=== PATIENT | female | born 1990 | race Caucasian/White ===

== ENCOUNTER 2017-03-12 12:06 | Emergency (ER) | payer MEDICAID, SELFPAY ==
[2017-03-12 13:59] LABS: BASO % 0.6 % (0.0-2.0); EOS # 0.1 K/uL (0.0-0.7); EOS % 0.8 % (0.0-4.0); HEMATOCRIT 35.3 % (34.0-47.0); LYMPH # 1.6 K/uL (1.0-4.3); LYMPH % 21.9 % (20.0-40.0); MEAN CELL VOLUME 84.7 fl (81.0-99.0); MEAN CORPUSCULAR HEMOGLOBIN 29.4 pg (27.0-31.0); MEAN CORPUSCULAR HGB CONC 34.7 g/dL (33.0-37.0); MEAN PLATELET VOLUME 10.2 fl (7.2-11.7); MONO # 0.5 K/uL (0.0-0.8); MONO % 6.2 % (0.0-10.0); NEUT # 5.3 K/uL (1.8-7.0); NEUT % 70.5 % (50.0-75.0); RED CELL DISTRIBUTION WIDTH 17.8 % (11.5-14.5); WHITE BLOOD COUNT 7.5 K/uL (4.8-10.8)
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
[2017-03-12 14:20] LABS: ALKALINE PHOSPHATASE 224 U/L (38-126); ALT/SGPT 33 U/L (9-52); AST/SGOT 34 U/L (14-36); BILIRUBIN,TOTAL 0.2 mg/dl (0.2-1.3); BLOOD UREA NITROGEN 7 mg/dl (7-17); CALCIUM 9.1 mg/dL (8.4-10.2); CARBON DIOXIDE 22 mmol/L (22-30); CHLORIDE 110 mmol/L (98-107); GFR AFRICAN-AMERICAN > 60; GLUCOSE,RANDOM 66 mg/dL (65-105); POTASSIUM 3.9 MMOL/L (3.6-5.0); SODIUM 141 mmol/l (132-148); TOTAL PROTEIN 6.7 G/DL (6.3-8.2)
[2017-03-13 12:30] VITALS: BP 103/36; PULSE 64; RESP 17; O2SAT 98
== END 2017-03-12 15:05 | disposition home or self-care (01) ==
LOC: H.EROB2 12:06 → H.EROB 12:06 → H.EROB2 15:05
DX: O26.93 Pregnancy related conditions, unspecified, third trimester (principal); R10.2 Pelvic and perineal pain; L29.9 Pruritus, unspecified; Z3A.37 37 weeks gestation of pregnancy

== ENCOUNTER 2017-03-27 05:44 | Inpatient (IN) | payer MEDICAID, SELFPAY ==
[2017-03-27 05:53] VITALS: BMI 32.8
[2017-03-27] MEDS ORDERED: ceFAZolin 2 GM in Sodium Chloride 0.9% 100 ML IVPB ONE (06:03)
[2017-03-27] MEDS ORDERED: Lactated Ringer's 1,000 ML IV SCH (06:15)
[2017-03-27] MEDS ORDERED: Oxytocin 30 UNITS in Sodium Chloride 0.9% 500 ML IV SCH (06:15)
[2017-03-27 06:56] LABS: BASO # 0.1 K/uL (0.0-0.2); BASO % 0.7 % (0.0-2.0); EOS # 0.1 K/uL (0.0-0.7); EOS % 1.2 % (0.0-4.0); HEMATOCRIT 37.8 % (34.0-47.0); LYMPH # 2.1 K/uL (1.0-4.3); LYMPH % 28.6 % (20.0-40.0); MEAN CELL VOLUME 86.3 fl (81.0-99.0); MEAN CORPUSCULAR HEMOGLOBIN 28.9 pg (27.0-31.0); MEAN CORPUSCULAR HGB CONC 33.5 g/dL (33.0-37.0); MEAN PLATELET VOLUME 10.4 fl (7.2-11.7); MONO # 0.5 K/uL (0.0-0.8); MONO % 6.7 % (0.0-10.0); NEUT # 4.6 K/uL (1.8-7.0); NEUT % 62.8 % (50.0-75.0); NRBC % 0.1 % (0.0-0.0); RED CELL DISTRIBUTION WIDTH 17.5 % (11.5-14.5); WHITE BLOOD COUNT 7.3 K/uL (4.8-10.8)
[2017-03-27] MEDS: Lactated Ringer's 1,000 ML IV SCH ×2 (06:56→07:18)
--- NOTE | 2017-03-27 07:05 | OBHP ---
Datetime: 03/27/2017 06:44 IP Adm Impression: Term, intrauterine IP Admit Plan: Admit to unit; Initiate Section protocol Admit Comment, IP Provider: CC: HPI: 26 YO @39wks IUP presents to L_D for scheduled repeat . Pt has hx of 2x previou s c-sections. Denies LOF, VB, ctx and endorses FM. Clinic: [facility] OBhx: 2x c section 2009 (failure to progress) and 2013 GYnHx: pap ASCUS, no STDs PMH: denies SurgHx: x 2 SH: lives with partner, denies smoking, etoh, illicit drug use FH: denies Allergies: NKDA Meds: PNV PE: VS Stable GEN NAD cardio: S1S2 no M/G/R Resp: vesicular breathing b/l Abdomen: gravid, NT Neuro: AAO x 3 Ext: no edema and NT FM: FHR 145, moderate variability-catagory I Assesment/Plan: 26 YO @39wks IUP is admited for scheduled repeat . GBS+, HIV neg, RPR neg, Hep B ne g, GC neg. -admit pt -blood work -anesthesiology consult -start abx ancef -fluids - monitor Case discussed with attending. Michaelle Machado, PGY I The patient was seen with the resident and I agree with the note Pelvic Type - PN: Adequate Extremities - PN: Normal Abdomen - PN: Normal Back - PN: Not Done Breast - PN: Normal Lungs - PN: Normal Heart - PN: Normal Thyroid - PN: Not Done Neurologic - PN: Normal HEENT - PN: Normal General - PN: Normal FHR - Baseline A Provider: 145 EGA AdmitDate IP: 40.0 Vital Signs Provider: Reviewed; Within Normal Limits IP Indication for Induction: Other IP Indication for Induction Oth: Repeat IP Chief Complaint: Scheduled Section NICHD Variability Prov Fetus A: Moderate 6-25bpm NICHD Accel Fetus A IP Provider: 15X15 FHR Category Provider Fetus A: Category I Genitourinary Exam: Normal DTRs - PN: Not Done
[2017-03-27] MEDS ORDERED: ceFAZolin IV 2 gm in Dextrose 2 GM/50 ML BAG IVPB ONE ×2 (07:30→07:58)
[2017-03-27] MEDS ORDERED: Morphine 1 mg/ml preservative-free Inj(Duramorph) IT ONE (07:54)
[2017-03-27] MEDS ORDERED: Morphine 5 mg/10 ml preservative-free Inj(Duramorph) ONE (08:14)
[2017-03-27] MEDS ORDERED: Oxycodone/Acetaminophen 5/325 mg Tab PO PRN (13:23)
[2017-03-27] MEDS ORDERED: DiphenhydrAMINE 50 mg/ml Inj IVP PRN (13:49)
[2017-03-27] MEDS ORDERED: DiphenhydrAMINE 50 mg/ml Inj ONE (13:55)
[2017-03-28 06:06] LABS: HEMATOCRIT 34.5 % (34.0-47.0); MEAN CELL VOLUME 86.7 fl (81.0-99.0); MEAN CORPUSCULAR HEMOGLOBIN 29.4 pg (27.0-31.0); MEAN CORPUSCULAR HGB CONC 33.9 g/dL (33.0-37.0); RED CELL DISTRIBUTION WIDTH 17.7 % (11.5-14.5); WHITE BLOOD COUNT 9.6 K/uL (4.8-10.8)
[2017-03-28] MEDS ORDERED: DiphenhydrAMINE 12.5 mg/5 ml LIQ UD (5 ml) PO PRN (06:27)
--- NOTE | 2017-03-28 08:30 | OBDS ---
DELIVERY PERSONNEL Delivery Doctor: Erik Rubi MD Scrub Nurse: Roxane Devries OBT Mission Planner: Helen Gamino RN Anesthesiologist: Josh MATERNAL INFORMATION Delivery Anesthesia: Spinal Medications in Delivery: Pitocin 20 and 30 units Estimated Blood Loss (ml): 800 Placenta Cultured: No Maternal Complications: None Provider Comments: Repeat low segment transverse section via Pfannenstiel incision. Patient delivered viable male with Apgars of 9 and 9 at one and 5 minutes respectively. Placenta deli beatriz manually. Moderate amount of intra-abdominal and pelvic adhesions Estimated blood loss 800 mL Fluids 1800 mL lactated Ringer's Urine output 200 mL of clear urine No Complications. LABOR SUMMARY EDC: 03/27/2017 00:00 No. Babies in Womb: 1 Attempted: No Labor Anesthesia: None LABOR INFORMATION Reason for Induction: Not Applicable Oxytocin: N/A Group B Beta Strep: Negative Steroids Given: None Reason Steroids Not Administered: Not Applicable MEMBRANES Membranes Rupture Method: Artificial Rupture of Membranes: 03/27/2017 11:34 Length of Rupture (hrs): 0.08 Amniotic Fluid Color: Clear Amniotic Fluid Amount: Moderate Amniotic Fluid Odor: Normal STAGES OF LABOR Stage 3 hrs: 0 Stage 3 min: 1 CSECTION DELIVERY Primary Indication: Repeat Elective Secondary Indication: Repeat Elective CSection Urgency: Elective CSection Incidence: Repeat Labor: No Labor Elective: Elective CSection Incision: Lower Uterine Transverse Other Sterilization Procedure: bilateral salpingectomy BABY A INFORMATION Delivery Date/Time: 03/27/2017 11:39 Method of Delivery: Born in Route : No : N/A Forceps: N/A Vacuum Extraction: Successful Shoulder Dystocia : No SHOULDER DYSTOCIA BABY A Infant Delivery Date/Time: 03/27/2017 11:39 PRESENTATION/POSITION BABY A Presentation: Cephalic Cephalic Presentation: Vertex Breech Presentation: N/A PLACENTA INFORMATION BABY A Placenta Delivery Time : 03/27/2017 11:40 Placenta Method of Delivery: Expressed Placenta Status: Delivered SCORES BABY A Heart Rate 1 min: >100 bpm Resp Effort 1 min: Good Cry Reflex Irritability 1 min: Cough or Sneeze or Pulls Away Muscle Tone 1 min: Active Motion Color 1 min: Body Trufant, Extremities Blue SCORE 1 MIN: 9 Heart Rate 5 min: >100 bpm Resp Effort 5 min: Good Cry Reflex Irritability 5 min: Cough or Sneeze or Pulls Away Muscle Tone 5 min: Active Motion Color 5 min: Body Trufant, Extremities Blue SCORE 5 MIN: 9 INFANT INFORMATION BABY A Gestational Age at Delivery: 40.0 Gestational Status: Term Outcome : Liveborn Infant Condition : Stable Sex: Male IDENTIFICATION/MEDS BABY A ID Band Number: [id number] ID Band Location: Left Leg; Left Arm WEIGHT/LENGTH BABY A Infant Birthweight (gms): 3275 Infant Weight (lb): 7 Infant Weight (oz): 3 CORD INFORMATION BABY A No. Cord Vessels: 3 Nuchal Cord : N/A Cord Blood Taken: Yes Infant Suction: None ASSESSMENT BABY A Infant Complications: None Physical Findings at Delivery: Within Normal Limits Infant Respirations: Appears Normal Infant Care By: Kaitlin Sahni RN Transferred To: [facility]
[2017-03-28] MEDS: Oxycodone/Acetaminophen 5/325 mg Tab PO PRN ×2 (11:49→18:36)
--- NOTE | 2017-03-28 12:09 | OP ---
PROCEDURE DATE: 03/27/2017 PREOPERATIVE DIAGNOSES: Repeat low-flap transverse section, 39 weeks' gestational age. POSTOPERATIVE DIAGNOSES: Repeat low-flap transverse section, 39 weeks' gestational age. OPERATION PERFORMED: Repeat low-flap transverse section via Pfannenstiel incision, bilateral tubal ligation in bilateral salpingectomy fashion. SURGEON: David Rubi MD. OVERHAULER HELPER: Eleonora Mcgraw MD. Dr. Mcgraw was present from the beginning of the procedure to the end of procedure. Dr. Mcgraw was integral in exposing the surgical field, removal of intraoperative adhesions, controlling of intraoperative bleeding and manual delivery of the . TYPE OF ANESTHESIA: Spinal. ANESTHESIA ADMINISTERED BY: Dr. Moreno. OPERATIVE FINDINGS: Viable infant male with Apgars of 9 and 9 at one and five minutes respectively, normal uterus, normal tubes and ovaries bilaterally, moderate amount of intraabdominal and pelvic adhesions. IV FLUID INTAKE: 1800 mL lactated Ringer's. ESTIMATED BLOOD LOSS: 800 mL. URINE OUTPUT: 200 mL of clear urine at the end of procedure. COMPLICATIONS: No complications. DESCRIPTION OF PROCEDURE: The patient was taken to the operating room where spinal anesthesia was found to be adequate. The patient was prepped and draped in normal sterile fashion in the dorsal supine position with a leftward tilt. A Pfannenstiel skin incision was made with a scalpel. This was carried down through to the underlying layer of fascia with scalpel. Midline defect was made in the fascial layer with scalpel. The fascial incision was then extended bilaterally sharply with curved Suárez scissors. The fascial layer was from the underlying rectus muscles both bluntly and sharply with curved Suárez scissors. The rectus muscles were at the midline. The peritoneum was then identified, tented up with Leonor clamps x2, entered sharply with Metzenbaum scissors. This peritoneal incision was then extended superiorly and inferiorly with good visualization of the urinary bladder. Bladder blade was inserted into the abdomen. The vesicouterine peritoneum was then identified, tented up with Leonor clamps x2, entered sharply with Metzenbaum scissors. This peritoneal incision was then extended bilaterally with Metzenbaum scissors. The bladder flap was created digitally. The Amber retractors were placed over the urinary bladder. The uterus was incised with a scalpel. The uterine incision was extended bilaterally bluntly. The infant's head was delivered atraumatically. Nose and mouth were suctioned with bulb suction. The remainder of the was delivered without complication. The cord was clamped and cut. The was handed off to waiting pediatricians. Cord blood was collected. Cord gases were collected. The placenta was removed manually. The uterus was cleared of all clots and debris. The uterine incision was repaired with 0 Vicryl in a running, locked fashion. Second layer of the same suture was used to imbricate the first and to obtain excellent hemostasis. Reinspection of the uterine incision proved excellent hemostasis. The abdomen and pelvis were irrigated with copious amounts of warm normal saline. All instruments were removed from the patient. The peritoneal layer was closed with a running stitch of 2-0 chromic. The rectus muscles were reapproximated with a running stitch of 2-0 chromic. The fascial layer was closed with a running stitch of 0 Vicryl. Subcutaneous tissue was closed with a running stitch of 3-0 plain. The skin was closed with zeina. The patient tolerated the procedure well. All sponge, lap count and needle counts were correct x2. The patient was given 2 g of Ancef just prior to the beginning of the procedure. There were no complications. The patient was taken to the recovery room in awake and stable condition. David Rubi MD
--- NOTE | 2017-03-28 17:35 | OBPPN ---
Datetime: 03/28/2017 06:29 PP Pain Prov: Within normal limits PP Nausea Prov: Present PP Flatus Prov: Yes PP BM Prov: No PP Breasts Prov: Normal PP Heart Prov: Normal PP Lungs Prov: Normal PP Abdomen/Uterus Prov: Normal PP Lochia Prov: Normal PP Vulva/Perineum Prov: Normal PP CVA Tenderness Prov: Not Done PP Extremities Prov: Normal PP C/S Incision Prov: Normal PP Progress Prov: Normal PP Impression Prov: Normal progression PP Plan Prov: Continue present management PP Progress Note Prov: S: pt seen and examined bedside this AM. POD1, s/p repeat . No acute overnight events. Mild pelvic pain, but controlled with meds. Ambulating w/o any difficulties. B/B f eeding baby. Tolerating liquid diet, will advance full diet today and lochia is similar to menses, vo iding without any difficulties. Pt endorses generalized itching. +/- gas, BM. Denies fever, chills, h eadache, chest pain, dyspnea, palpitations, n/v/d/c and remains afebrile. Of note cyracom used 300010 O: VS stable GEN: NAD Cardio: S1S2 no M/G/R Resp: vesicular breathing b/l Abdomen: zeina in place. mild tenderness to palpation in incision area, incision intact, no disc harge noted, no erythema, no dehiscence. Fundus below the umbilicus and firm. BS+ Neuro: AAO x 3 Ext: no edema noted, no calf tenderness Assessment/Plan: 26 YO delivered @ 39wks to a baby boy via repeat on 03/27/17. Doing well POD1. Pt re ernestina afebrile. OOB with caution SCD's for DVT prophylaxis, ambulating Ibuprofen and Percocet 5/325mg 1-2 tablets po q6 for mod/sev pain Encourage and ambulation Senakot 17.2mg PO qHS Will advance diet Benadryl for puritis will continue PP management Michaelle Machado, PGY I OB attending: Patient seen and examined by me. Agree with assessment and plan. Vital Signs Provider PP: Reviewed; Within Normal Limits
[2017-03-28] MEDS ORDERED: Lidocaine 1% Inj (20ml) ONE (21:50)
--- NOTE | 2017-03-29 16:01 | OBPPN ---
Datetime: 03/29/2017 08:13 PP Pain Prov: Within normal limits PP Nausea Prov: Denies PP Flatus Prov: Yes PP BM Prov: No PP Breasts Prov: Normal PP Heart Prov: Normal PP Lungs Prov: Normal PP Abdomen/Uterus Prov: Normal PP Lochia Prov: Normal PP Vulva/Perineum Prov: Normal PP CVA Tenderness Prov: Not Done PP Extremities Prov: Normal PP C/S Incision Prov: Normal PP Progress Prov: Normal PP Impression Prov: Normal progression PP Plan Prov: Continue present management PP Progress Note Prov: S: pt seen and examined bedside this AM. POD2, s/p repeat . No acute overnight events. Pt states that her pelvic pain has resolved, and now only feels pain when she pres sed on her abdomen. Ambulating around the room w/o any difficulties. Tolerating PO diet and lochia is similar to light menses, voiding without any difficulties. +/- gas, BM. Denies fever, chills, headac he, chest pain, dyspnea, palpitations, n/v/d/c and remains afebrile. PP Nurse was in the room for translation. O: VS stable GEN: NAD Cardio: S1S2 no M/G/R Resp: vesicular breathing b/l Abdomen: zeina in place. mild tenderness to palpation in RLQ near incision site. Incision intact , no discharge noted, no erythema, no dehiscence. Fundus below the umbilicus and firm. BS+ Neuro: AAO x 3 Ext: no edema noted, no calf tenderness Assessment/Plan: 26 YO delivered @ 39wks to a baby boy via repeat on 03/27/17. Doing well POD2. Pt re ernestina afebrile. OOB with caution SCD's for DVT prophylaxis, ambulating Ibuprofen and Percocet 5/325mg 1-2 tablets po q6 for mod/sev pain Encourage and ambulation Senakot 17.2mg PO qHS Will continue PP management Michaelle Machado, PGY I OB Hospitalist note: Pt seen and examined on rounds this morning. Agree with PGY1 note MAHNDO Vital Signs Provider PP: Reviewed; Within Normal Limits
--- NOTE | 2017-03-30 10:59 | OBPPN ---
Datetime: 03/30/2017 08:32 PP Pain Prov: Within normal limits PP Nausea Prov: Denies PP Flatus Prov: Yes PP BM Prov: Yes PP Breasts Prov: Not Done PP Heart Prov: Normal PP Lungs Prov: Normal PP Abdomen/Uterus Prov: Normal PP Lochia Prov: Normal PP Extremities Prov: Normal PP C/S Incision Prov: Normal PP Comments Phys Exam Prov: Incision: c/d/i PP Impression Prov: Normal progression PP Plan Prov: Discharge PP Progress Note Prov: 26 yo s/p on 03/27/17, POD 3, seen and examined at bedside this morning. Pt reports no acute events overnight. Had mild pelvic pain that is well controlled with med ication. Ambulating freely without dizziness. Tolerating PO diet without nausea, vomiting. Feeding b marjorie via breast and bottle. Lochia like menses in volume. Voiding freely, has had BM and flatus. Denie s fever, chills, headache, chest pain, dyspnea, palpitations, nausea, vomitting, diarrhea, constipati on. PE: Gen: alert, oriented CV: S1,S2 present, RRR Resp: normal resp effort, clear to auscultation bilaterally Abd: zeina intact, no discharge noted from incision. No erythema around incision. Fundus firm be low umbilicus. Ext: no edema noted, no calf tenderness, Bassem's negative. Assessment/Plan: 26 yo now s/p repeat at 39 weeks, POD 3, doing well, ready for discharge. Plan: Continue current management until discharge home today. -[email or web address] OB attending addendum: Patient seen and examined by me. Agree with above assessment and plan. With Dr. Hayes zeina removed at the bedside and Steri-Strips applied. Vital Signs Provider PP: Reviewed
--- NOTE | 2017-03-30 11:01 | OBDCSUM ---
Datetime: 03/30/2017 09:00 Discharged to, Provider: Home Follow up at, Provider: Dre Disch Instr Activity: Normal activity; May Shower Disch Instr Diet: Regular Discharge Instructions, Provider: Routine instructions given Discharge Diagnosis, Provider: Term Delivered Discharge Time: 03/30/2017 09:55 Follow up in weeks, Provider: 1 week Disch Referrals: None Discharge Instruct Comment, Prov: postop restrictions Contraception discussed, Prov: No Disch Activity Restrictions: No exercising; No lifting; No driving; No sexual activity; Nothing in v agina - [place], tampons, douche Discharge Comment, Provider: Discharge instructions: Encourage and ambulation PNV 1 tab PO/day Ibuprofen 600 mg 1 tab PRN if moderate pain. Ambulate with caution, nothing per vagina, no heavy lifting, avoid stairs. If excessive bleeding, or fever without relief from tylenol, go to ED. F/u at [facility] with provider in 1 week for pt, and with pediatric/family provider in 2-3 days for baby. -[email or web address] Discharge Diagnosis Prov Other: with btl
[2017-03-30 17:52] VITALS: BP 113/74; PULSE 82; RESP 18; TEMP 98.4; O2SAT 100
== END 2017-03-30 12:05 | disposition home or self-care (01) | DRG 371 ==
LOC: H.L&D 05:44 → H.OB/GYN 16:36
PROVIDERS: ADMIT Obstetrics & Gynecology Gynecology; ATTEND Obstetrics & Gynecology Gynecology
PROC: 10D00Z1 Extraction of Products of Conception, Low, Open Approach (ICD-10-PCS; principal; 2017-03-27)
PROC: 0UB70ZZ Excision of Bilateral Fallopian Tubes, Open Approach (ICD-10-PCS; 2017-03-27)
PROC: 4A1HXCZ Monitoring of Products of Conception, Cardiac Rate, External Approach (ICD-10-PCS; 2017-03-27)
DX: O34.211 Maternal care for low transverse scar from previous cesarean delivery (principal); N85.8 Other specified noninflammatory disorders of uterus; Z37.0 Single live birth; O99.89 Other specified diseases and conditions complicating pregnancy, childbirth and the puerperium; L29.9 Pruritus, unspecified; Z3A.39 39 weeks gestation of pregnancy